=== PATIENT | male | born 1960 | race Two or more races ===

== ENCOUNTER 2024-08-30 08:39 | Inpatient (IN) | payer OTHER ==
[2024-08-17 12:45] VITALS: BP 119/79
[2024-08-17 14:05] LABS: RH POSITIVE
[~2024-08-30] VITALS: Ht 170.2 cm; Wt 216.8 kg
[~2024-08-30 08:39] MED LIST: CANDESARTAN CILE8 MG; ECOTRIN81 MG PO; GLUMETZA1000 MG PO; HYDREA500 M1 PO; LIPITOR20 MG; NAPR500T14; PROTONIX40 MG PO
[2024-08-30] MEDS ORDERED: CEFAZOLIN SODIUM 1,000 MG VIAL IV ONE (14:00)
[2024-08-30] MEDS ORDERED: KETOROLAC TROMETHAMINE 60 MG VIAL IM ONE (14:00)
[2024-08-30] MEDS ORDERED: LIDOCAINE HCL 1%/EPINEPHRINE 20ML VIAL IJ ONE (14:00)
[2024-08-30] MEDS ORDERED: TRANEXAMIC ACID 100MG/1ML (1000MG) AMPUL IV ONE ×2 (14:00)
[2024-08-30] MEDS ORDERED: MORPHINE SULFATE 4 MG/ML VIAL IV ONE ×4 (14:00→19:55)
[2024-08-30] MEDS ORDERED: BUPIVACAINE HCL/PF 0.25% 30ML VIAL InF ONE (14:00)
[2024-08-30] MEDS ORDERED: GENTAMICIN SULFATE 40 MG/ML VIAL IV SCH (16:13)
[2024-08-30] MEDS ORDERED: SODIUM CHLORIDE 0.45 % 1,000 ML IV SCH (16:15)
[2024-08-30] MEDS ORDERED: ONDANSETRON HCL 2 MG/ML VIAL IV PRN (16:15)
[2024-08-30] MEDS ORDERED: MORPHINE SULFATE 4 MG/ML VIAL IV PRN (16:15)
[2024-08-30] MEDS ORDERED: MetFORMIN HCL 1000 MG TABLET PO SCH (17:00)
[2024-08-30] MEDS ORDERED: CEFAZOLIN SODIUM 1,000 MG VIAL IV SCH (18:00)
[2024-08-30 20:30] VITALS: BP 167/72; O2SAT 96
[2024-08-30 20:46] LABS: HEMATOCRIT 38.3 % (39.0-48.0); HEMOGLOBIN 13.3 g/dL (13-16.00); RED BLOOD COUNT 3.67 M/uL (4.00-6.00)
[2024-08-31 01:11] VITALS: BP 138/83; O2SAT 97
[2024-08-31 06:31] LABS: HEMATOCRIT 38.5 % (39.0-48.0); HEMOGLOBIN 13.1 g/dL (13-16.00); MEAN CELL VOLUME 106.2 fL (80.0-100.00); MEAN CORPUSCULAR HEMOGLOBIN 36.1 pg (27.00-32.0); PLATELET COUNT 340 K/uL (150-450); RED BLOOD COUNT 3.62 M/uL (4.00-6.00); RED CELL DISTRIBUTION WIDTH 14.7 % (11.5-14.5)
[2024-08-31 08:00] VITALS: BP 146/78; O2SAT 96
[2024-08-31] MEDS ORDERED: Septra Ds Tablet PO (08:03)
[2024-08-31] MEDS ORDERED: TRAM1TAB98 PO (08:04)
[2024-08-31] MEDS ORDERED: SENNA/DOCUSATE SODIUM 1 TAB TABLET PO SCH (09:00)
[2024-08-31] MEDS ORDERED: BACITRACIN 28.35 GM OINT.TUBE TOP SCH (09:00)
[2024-08-31] MEDS ORDERED: PANTOPRAZOLE SODIUM 40 MG TABLET.DR PO SCH (09:00)
[2024-08-31] MEDS ORDERED: ATORVASTATIN CALCIUM 20 MG TABLET PO SCH (09:00)
[2024-08-31] MEDS ORDERED: SULFAMETHOXAZOLE/TRIMETHOPRIM DS 1 TAB PO SCH (09:00)
[2024-08-31] MEDS ORDERED: IRON FUM,PS/FOLIC/BCOMP,C NO.9 1 CAP CAPSULE PO SCH (09:00)
[2024-08-31] MEDS ORDERED: CANDESARTAN CILEXETIL 8 MG TAB PO SCH (09:00)
== END 2024-08-31 10:05 | disposition home or self-care (01) | DRG 483 ==
LOC: CIR.AMB 08:39 → SURH 17:24
PROVIDERS: ADMIT Orthopaedic Surgery Sports Medicine; ATTEND Orthopaedic Surgery Sports Medicine
PROC: 0LS30ZZ Reposition Right Upper Arm Tendon, Open Approach (ICD-10-PCS; 2024-08-30)
PROC: 0PUC0JZ Supplement Right Humeral Head with Synthetic Substitute, Open Approach (ICD-10-PCS; 2024-08-30)
PROC: 0RRJ00Z Replacement of Right Shoulder Joint with Reverse Ball and Socket Synthetic Substitute, Open Approach (ICD-10-PCS; principal; 2024-08-30 08:30)
DX: M75.121 Complete rotator cuff tear or rupture of right shoulder, not specified as traumatic (principal); M19.011 Primary osteoarthritis, right shoulder